=== PATIENT | female | born 1940 | race African-American/Black ===

== ENCOUNTER 2019-01-21 08:54 | Inpatient (IN) | payer MEDICARE, MEDICAID ==
[~2019-01-21] VITALS: Ht 177.8 cm; Wt 141.6 kg
[~2019-01-21 08:54] MED LIST: ALBU6.7H IH; AMLO10TA80 PO; ATROV IH; LORA-250 PO; LOSA1TAB34 PO; NEBI10TA2 PO; PROP10DR5 OP; RIVA20TA PO
[2019-01-21] MEDS ORDERED: IPRATROPIUM BROMIDE (0.02%) 0.5MG/2.5ML NEB HHN STA (09:00)
[2019-01-21] MEDS ORDERED: ALBUTEROL (0.083%) 2.5MG/3ML NEB HHN SCH (09:00)
[2019-01-21] MEDS ORDERED: ALBUTEROL (0.083%) 2.5MG/3ML NEB ONE ×2 (09:12→09:13)
[2019-01-21] MEDS ORDERED: IPRATROPIUM BROMIDE (0.02%) 0.5MG/2.5ML NEB ONE (09:13)
[2019-01-21 09:25] LABS: HEMATOCRIT. 36.6 % (36.0-48.0); HEMOGLOBIN. 11.9 g/dL (12.0-16.0); MEAN CORPUSCULAR HEMOGLOBIN 29.2 pg (28.0-32.0); MEAN CORPUSCULAR VOLUME 89.7 fL (81.0-99.0); MEAN PLATELET VOLUME 10.1 fl (7.4-10.4); PLATELET 147 x1000/uL (130-400); RED BLOOD CELL COUNT 4.08 mill/uL (4.2-5.4); RED CELL DISTRIBUTION WIDTH 16.2 % (11.6-14.6)
[2019-01-21 09:35] LABS: CHLORIDE 102 mEq/L (98-107)
[2019-01-21 09:49] LABS: BG BASE EXCESS 0.3 mmol/L (-2.0-2.0); BG BILEVEL POS AIRWAY PRESSURE 15/5; BG CARBOXYHEMOGLOBIN 0.8 % (0.5-1.5); BG DEOXYHEMOGLOBIN 0.4 % (0.0-5.0); BG FRACTION INSPIRED OXYGEN 100; BG HCO3 ACT 26.2 mmol/L (22.0-26.0); BG METHEMOGLOBIN 0.4 % (0.0-1.5); BG OXYGEN SATURATION 99.6 % (92.0-98.5); BG OXYHEMOGLOBIN 98.4 % (94.0-97.0); BG PCO2 47.5 mmHg (35.0-45.0); BG PO2 410.8 mmHg (75.0-100.0); BG SAMPLE SITE RIGHT RADIAL; BG TOTAL HEMOGLOBIN 12.5 g/dL (12.0-18.0); BG VENT MODE MASK - BIPAP; BG VENT RATE 26 set
[2019-01-21 10:58] LABS: PLATELET ESTIMATE NORMAL
[2019-01-21] MEDS ORDERED: ENALAPRIL 2.5MG/2ML VIAL 2ML IV ONE (11:15)
[2019-01-21] MEDS ORDERED: FUROSEMIDE 40MG/4ML VIAL IVP ONE (11:15)
[2019-01-21] MEDS ORDERED: CLONIDINE 0.1MG TABLET PO PRN (12:45)
[2019-01-21] MEDS ORDERED: IPRATROPIUM/ALBUTEROL 0.5-3(2.5)MG/3ML NEB HHN PRN ×2 (12:45→14:15)
[2019-01-21] MEDS ORDERED: ACETAMINOPHEN 325MG TABLET PO PRN (12:45)
[2019-01-21] MEDS ORDERED: ONDANSETRON HCL 4MG/2ML INJ IV PRN (12:45)
[2019-01-21] MEDS ORDERED: GUAIFENESIN-DM 200MG-20MG/10ML UDC PO PRN (13:45)
[2019-01-21 13:57] VITALS: BP 164/99
[2019-01-21 14:00] VITALS: BP 164/99
[2019-01-21] MEDS ORDERED: PRED5TAB MT (14:40)
[2019-01-21] MEDS ORDERED: FURO40TA5 MT (14:41)
[2019-01-21] MEDS ORDERED: CARV6.2548 MT (14:42)
[2019-01-21] MEDS ORDERED: OXYB5TAB MT (14:44)
[2019-01-21] MEDS: LOSARTAN POTASSIUM 50 MG TABLET PO SCH (15:11)
[2019-01-21] MEDS: METHYLPREDNISOLONE SOD SUCC 40 MG/ML VIAL IV SCH ×2 (15:12→21:56)
[2019-01-21 16:00] VITALS: BP 155/76
[2019-01-21] MEDS ORDERED: ENOXAPARIN 40MG/0.4ML SYR SUBCUT SCH (16:00)
[2019-01-21] MEDS: IPRATROPIUM/ALBUTEROL 0.5-3(2.5)MG/3ML NEB HHN SCH ×3 (16:33→23:54)
[2019-01-21] MEDS: ACETYLCYSTEINE 100MG/ML 10% VIAL 4ML INH SCH ×2 (16:33→23:54)
[2019-01-21] MEDS: FUROSEMIDE 40MG/4ML VIAL IVP SCH (17:53)
[2019-01-21 18:00] VITALS: BP 147/70
[2019-01-21 20:00] VITALS: BP 141/88
[2019-01-21] MEDS: BUDESONIDE 0.5MG/2ML NEB HHN SCH (20:42)
[2019-01-21] MEDS ORDERED: CARVEDILOL 6.25 MG TABLET PO SCH (21:00)
[2019-01-21] MEDS: GUAIFENESIN 600MG ER TABLET PO SCH (21:56)
[2019-01-21 22:00] VITALS: BP 140/87
[2019-01-22] VITALS (12 sets, daily range): BP systolic 105–176; BP diastolic 49–93
[2019-01-22] MEDS: IPRATROPIUM/ALBUTEROL 0.5-3(2.5)MG/3ML NEB HHN SCH ×5 (03:22→20:44)
[2019-01-22] MEDS: METHYLPREDNISOLONE SOD SUCC 40 MG/ML VIAL IV SCH ×3 (05:34→17:58)
[2019-01-22] MEDS: ACETYLCYSTEINE 100MG/ML 10% VIAL 4ML INH SCH ×2 (09:25→16:53)
[2019-01-22] MEDS: BUDESONIDE 0.5MG/2ML NEB HHN SCH ×2 (09:25→20:44)
[2019-01-22 09:28] LABS: CLARITY URINE CLOUDY (CLEAR); COLOR URINE YELLOW (YELLOW); KETONES URINE NEGATIVE (NEGATIVE); LEUKOCYTE ESTERASE URINE 1+ (NEGATIVE); NITRITE URINE NEGATIVE (NEGATIVE); OCCULT BLOOD URINE 3+ (NEGATIVE); PROTEIN URINE NEGATIVE (NEGATIVE); SPECIFIC GRAVITY URINE 1.019 (1.005-1.030); UROBILINOGEN URINE 0.2 E.U./dL (0.2-1.0)
[2019-01-22] MEDS: LOSARTAN POTASSIUM 50 MG TABLET PO SCH (10:03)
[2019-01-22] MEDS: FUROSEMIDE 40MG/4ML VIAL IVP SCH (10:03)
[2019-01-22] MEDS: GUAIFENESIN 600MG ER TABLET PO SCH ×2 (10:03→21:36)
[2019-01-22 10:16] LABS: *AMPHETAMINES SCREEN URINE NEGATIVE (NEGATIVE); *BARBITURATES SCREEN URINE NEGATIVE (NEGATIVE); *BENZODIAZEPINES SCREEN URINE NEGATIVE (NEGATIVE); *COCAINE SCREEN URINE NEGATIVE (NEGATIVE); METHADONE URINE SCREEN NEGATIVE (NEGATIVE); OPIATES URINE SCREEN NEGATIVE (NEGATIVE); PHENCYCLIDINE URINE SCREEN NEGATIVE (NEGATIVE)
[2019-01-22 10:17] LABS: CANNABINOID URINE SCREEN NEGATIVE (NEGATIVE)
[2019-01-22 12:31] LABS: BASOPHILS % 0.1 % (0.0-2.0); HEMATOCRIT. 39.7 % (36.0-48.0); HEMOGLOBIN. 12.8 g/dL (12.0-16.0); LYMPHOCYTES % 14.6 % (20.0-50.0); MEAN CORPUSCULAR HEMOGLOBIN 28.7 pg (28.0-32.0); MEAN CORPUSCULAR VOLUME 89.3 fL (81.0-99.0); MEAN PLATELET VOLUME 10.2 fl (7.4-10.4); MONOCYTES % 5.3 % (2.0-8.0); PLATELET 142 x1000/uL (130-400); RED BLOOD CELL COUNT 4.44 mill/uL (4.2-5.4); RED CELL DISTRIBUTION WIDTH 16.3 % (11.6-14.6)
[2019-01-22 12:38] LABS: CHLORIDE 101 mEq/L (98-107)
[2019-01-22] MEDS: METRONIDAZOLE 500MG TABLET PO SCH ×2 (15:32→21:36)
[2019-01-22] MEDS ORDERED: TERBUTALINE SULFATE 1MG/ML VIAL SUBCUT NR (16:00)
[2019-01-22] MEDS: RIVAROXABAN 20 MG TABLET PO SCH (17:57)
[2019-01-23] VITALS (13 sets, daily range): BP systolic 121–171; BP diastolic 66–87
[2019-01-23] MEDS: ACETYLCYSTEINE 100MG/ML 10% VIAL 4ML INH SCH ×2 (00:36→08:13)
[2019-01-23] MEDS: IPRATROPIUM/ALBUTEROL 0.5-3(2.5)MG/3ML NEB HHN SCH ×6 (00:36→19:57)
[2019-01-23] MEDS: METRONIDAZOLE 500MG TABLET PO SCH ×2 (05:38→14:55)
[2019-01-23 07:31] LABS: BASOPHILS % 0.1 % (0.0-2.0); HEMATOCRIT. 36.8 % (36.0-48.0); HEMOGLOBIN. 12.2 g/dL (12.0-16.0); LYMPHOCYTES % 9.8 % (20.0-50.0); MEAN CORPUSCULAR VOLUME 87.5 fL (81.0-99.0); MEAN PLATELET VOLUME 10.4 fl (7.4-10.4); NEUTROPHILS % 83.1 % (40.0-76.0); PLATELET 154 x1000/uL (130-400); RED CELL DISTRIBUTION WIDTH 15.8 % (11.6-14.6)
[2019-01-23 07:41] LABS: CHLORIDE 101 mEq/L (98-107)
[2019-01-23] MEDS: BUDESONIDE 0.5MG/2ML NEB HHN SCH ×2 (08:00→19:57)
[2019-01-23] MEDS: LOSARTAN POTASSIUM 50 MG TABLET PO SCH (10:44)
[2019-01-23] MEDS: METHYLPREDNISOLONE SOD SUCC 40 MG/ML VIAL IV SCH (10:44)
[2019-01-23] MEDS: GUAIFENESIN 600MG ER TABLET PO SCH ×2 (10:44→21:06)
[2019-01-23] MEDS ORDERED: LEVOFLOXACIN 500MG PREMIX 100 ML IV SCH (12:00)
[2019-01-23] MEDS: RIVAROXABAN 20 MG TABLET PO SCH (17:27)
[2019-01-24] MEDS ORDERED: PREDNISONE 20MG TABLET PO SCH (09:00)
== END 2019-01-23 21:31 | disposition home or self-care (01) | DRG 189 ==
LOC: ER 08:54 → 5EST 11:52 → EDBEDREQ 11:59 → ENRESERV 12:26
PROVIDERS: ADMIT Internal Medicine; ATTEND Internal Medicine
PROC: 5A09357 Assistance with Respiratory Ventilation, Less than 24 Consecutive Hours, Continuous Positive Airway Pressure (ICD-10-PCS; principal; 2019-01-21)
DX: J96.01 Acute respiratory failure with hypoxia (principal); I50.33 Acute on chronic diastolic (congestive) heart failure; G93.41 Metabolic encephalopathy; J44.1 Chronic obstructive pulmonary disease with (acute) exacerbation; E44.1 Mild protein-calorie malnutrition; D64.9 Anemia, unspecified; I11.0 Hypertensive heart disease with heart failure; E66.9 Obesity, unspecified; A59.9 Trichomoniasis, unspecified; I48.2 Chronic atrial fibrillation; Z79.01 Long term (current) use of anticoagulants; Z82.49 Family history of ischemic heart disease and other diseases of the circulatory system; Z88.0 Allergy status to penicillin; Z88.2 Allergy status to sulfonamides; Z79.899 Other long term (current) drug therapy
CPT/HCPCS: 36415; 36600; 71045; 80048; 80061; 80305; 82375; 82805; 83036; 83880; 84443; 84484; 87077; 87186; 87804; 93005; 93306; 93970; 94640; 94660; 96374; 99291; J1650; J1940; J1956; J2920; J3490; J7050; J7608; J7611; J7620; J7626

== ENCOUNTER 2021-08-23 13:16 | Inpatient (IN) | payer MEDICARE, MEDICAID ==
[~2021-08-23] VITALS: Ht 177.8 cm; Wt 132.0 kg
[~2021-08-23 13:16] MED LIST changes: -ALBU6.7H IH; +ALBU6.7H15 IH; +FURO40TA5 MT; +OXYB5TAB MT
[2021-08-23 14:38] LABS: BASOPHILS % 0.2 % (0.0-2.0); EOSINOPHILS % 1.2 % (0.0-5.0); HEMOGLOBIN. 10.7 g/dL (12.0-16.0); LYMPHOCYTES % 8.9 % (20.0-50.0); MEAN CORPUSCULAR HEMOGLOBIN 27.4 pg (28.0-32.0); MEAN CORPUSCULAR VOLUME 86.7 fL (81.0-99.0); MEAN PLATELET VOLUME 10.2 fl (7.4-10.4); MONOCYTES % 6.3 % (2.0-8.0); NEUTROPHILS % 83.4 % (40.0-76.0); PLATELET 274 x1000/uL (130-400); RED BLOOD CELL COUNT 3.92 mill/uL (4.2-5.4); RED CELL DISTRIBUTION WIDTH 15.3 % (11.6-14.6)
[2021-08-23 14:44] LABS: CHLORIDE 100 mEq/L (98-107)
[2021-08-23 14:54] LABS: CREATINE KINASE 179 IU/L (26-192)
[2021-08-23] MEDS ORDERED: ONDANSETRON HCL 4MG/2ML INJ IV STA (15:47)
[2021-08-23] MEDS ORDERED: MORPHINE SULFATE 4 MG/ML CPJ (NOT FOR IM USE) IV STA (15:47)
[2021-08-23] MEDS ORDERED: ONDANSETRON HCL 4MG/2ML INJ IV PRN (23:00)
[2021-08-24] VITALS (7 sets, daily range): BP systolic 115–158; BP diastolic 48–86
[2021-08-24 08:35] LABS: BASOPHILS % 0.4 % (0.0-2.0); EOSINOPHILS % 2.6 % (0.0-5.0); HEMATOCRIT. 31.7 % (36.0-48.0); HEMOGLOBIN. 10.2 g/dL (12.0-16.0); LYMPHOCYTES % 9.8 % (20.0-50.0); MEAN CORPUSCULAR HEMOGLOBIN 28.1 pg (28.0-32.0); MEAN CORPUSCULAR VOLUME 87.6 fL (81.0-99.0); MEAN PLATELET VOLUME 10.8 fl (7.4-10.4); MONOCYTES % 7.3 % (2.0-8.0); NEUTROPHILS % 79.9 % (40.0-76.0); PLATELET 273 x1000/uL (130-400); RED BLOOD CELL COUNT 3.62 mill/uL (4.2-5.4); RED CELL DISTRIBUTION WIDTH 15.6 % (11.6-14.6)
[2021-08-24 08:51] LABS: CHLORIDE 102 mEq/L (98-107)
[2021-08-24 09:07] LABS: LDL CHOLESTEROL 91 mg/dL (5-100)
[2021-08-24 09:08] LABS: CREATINE KINASE 267 IU/L (26-192)
[2021-08-24 09:09] LABS: HDL CHOLESTEROL 37 mg/dL (40-59)
[2021-08-24 09:12] LABS: CREATINE KINASE MB FRACTION 3.4 ng/mL (0.5-3.6)
[2021-08-24] MEDS ORDERED: SODIUM HYPOCHLORITE 0.125% 473ML SOLUTION TOP PRN (12:00)
[2021-08-24] MEDS: ENOXAPARIN 30MG/0.3ML SYR SUBCUT SCH ×2 (12:02→22:34)
[2021-08-24 17:36] LABS: CREATINE KINASE 294 IU/L (26-192)
[2021-08-24 17:37] LABS: CREATINE KINASE MB FRACTION 2.7 ng/mL (0.5-3.6)
[2021-08-25] VITALS: BP 128/65
[2021-08-25 03:49] VITALS: BP 134/59
[2021-08-25 08:00] VITALS: BP 106/48
[2021-08-25] MEDS: ENOXAPARIN 30MG/0.3ML SYR SUBCUT SCH ×3 (09:00→21:02)
[2021-08-25 12:00] VITALS: BP 117/56
[2021-08-25 14:25] LABS: BASOPHILS % 0.5 % (0.0-2.0); EOSINOPHILS % 3.6 % (0.0-5.0); HEMATOCRIT. 32.1 % (36.0-48.0); HEMOGLOBIN. 10.1 g/dL (12.0-16.0); LYMPHOCYTES % 15.3 % (20.0-50.0); MEAN CORPUSCULAR HEMOGLOBIN 27.6 pg (28.0-32.0); MEAN CORPUSCULAR VOLUME 87.3 fL (81.0-99.0); MEAN PLATELET VOLUME 10.9 fl (7.4-10.4); MONOCYTES % 8.6 % (2.0-8.0); PLATELET 279 x1000/uL (130-400); RED BLOOD CELL COUNT 3.67 mill/uL (4.2-5.4); RED CELL DISTRIBUTION WIDTH 15.4 % (11.6-14.6)
[2021-08-25 14:29] LABS: CHLORIDE 106 mEq/L (98-107)
[2021-08-25 16:00] VITALS: BP 136/52
[2021-08-25] MEDS: ZINC SULFATE 220 MG ( 50 ) CAPSULE PO SCH (18:20)
[2021-08-25] MEDS: ASCORBIC ACID 250 MG TABLET PO SCH (18:20)
[2021-08-25 20:00] VITALS: BP 113/46
[2021-08-26] VITALS: BP 111/41
[2021-08-26 04:00] VITALS: BP 138/44
[2021-08-26 08:00] VITALS: BP 135/72
[2021-08-26] MEDS: ENOXAPARIN 30MG/0.3ML SYR SUBCUT SCH ×2 (09:38→20:53)
[2021-08-26] MEDS: ZINC SULFATE 220 MG ( 50 ) CAPSULE PO SCH (09:38)
[2021-08-26] MEDS: ASCORBIC ACID 250 MG TABLET PO SCH (09:38)
[2021-08-26 12:00] VITALS: BP 131/42
[2021-08-26 16:00] VITALS: BP 138/56
[2021-08-26 20:00] VITALS: BP 135/60
[2021-08-26] MEDS: ACETAMINOPHEN 325MG TABLET PO PRN (21:44)
[2021-08-26] MEDS ORDERED: NALOXONE HCL 0.4MG/ML VIAL IV PRN (21:45)
[2021-08-26] MEDS ORDERED: HYDROCODONE/ACETAMINOPHEN 5/325MG TABLET PO PRN (21:45)
[2021-08-27] VITALS: BP 129/65
[2021-08-27 04:00] VITALS: BP 120/50
[2021-08-27 08:00] VITALS: BP 146/62
[2021-08-27] MEDS: ASCORBIC ACID 250 MG TABLET PO SCH (10:06)
[2021-08-27] MEDS: ZINC SULFATE 220 MG ( 50 ) CAPSULE PO SCH (10:07)
[2021-08-27] MEDS: ENOXAPARIN 30MG/0.3ML SYR SUBCUT SCH (10:07)
[2021-08-27 12:00] VITALS: BP 116/55
[2021-08-27 16:00] VITALS: BP 132/80
[2021-08-27] MEDS ORDERED: ZINC220C2 PO (18:01)
[2021-08-27] MEDS ORDERED: ASCO250T22 PO (18:01)
[2021-08-27] MEDS ORDERED: OXYBUTYNIN CHLORIDE MT SCH (18:15)
[2021-08-27] MEDS: OXYBUTYNIN CHLORIDE 5MG TABLET PO SCH (18:35)
[2021-08-27] MEDS: RIVAROXABAN 20 MG TABLET PO SCH (18:35)
[2021-08-27] MEDS: FUROSEMIDE 40MG TABLET PO SCH (18:35)
[2021-08-27] MEDS: NEBIVOLOL HCL 5 MG TABLET PO SCH (18:35)
[2021-08-27 20:00] VITALS: BP 132/42
[2021-08-27] MEDS: ALBUTEROL (0.083%) 2.5MG/3ML NEB HHN SCH (20:17)
[2021-08-27 21:07] LABS: BASOPHILS % 0.4 % (0.0-2.0); EOSINOPHILS % 3.9 % (0.0-5.0); HEMATOCRIT. 33.1 % (36.0-48.0); HEMOGLOBIN. 10.6 g/dL (12.0-16.0); LYMPHOCYTES % 19.6 % (20.0-50.0); MEAN CORPUSCULAR VOLUME 87.3 fL (81.0-99.0); MEAN PLATELET VOLUME 10.4 fl (7.4-10.4); MONOCYTES % 8.3 % (2.0-8.0); NEUTROPHILS % 67.8 % (40.0-76.0); PLATELET 301 x1000/uL (130-400); RED CELL DISTRIBUTION WIDTH 15.5 % (11.6-14.6)
[2021-08-27 21:15] LABS: CHLORIDE 105 mEq/L (98-107)
[2021-08-27 21:17] LABS: INR 1.2; PROTHROMBIN TIME 13.1 sec (9.6-11.0)
[2021-08-28] VITALS: BP 140/59
[2021-08-28 04:00] VITALS: BP 149/66
[2021-08-28 08:00] VITALS: BP 148/69
[2021-08-28] MEDS: ALBUTEROL (0.083%) 2.5MG/3ML NEB HHN SCH ×2 (08:12→22:35)
[2021-08-28] MEDS ORDERED: ALBUTEROL 6.7GM HFA INHALER INH SCH (09:00)
[2021-08-28] MEDS: ASCORBIC ACID 250 MG TABLET PO SCH (09:22)
[2021-08-28] MEDS: OXYBUTYNIN CHLORIDE 5MG TABLET PO SCH ×3 (09:22→18:23)
[2021-08-28] MEDS: AMLODIPINE 10MG TABLET PO SCH (09:23)
[2021-08-28] MEDS: ZINC SULFATE 220 MG ( 50 ) CAPSULE PO SCH (09:23)
[2021-08-28] MEDS: NEBIVOLOL HCL 5 MG TABLET PO SCH (09:23)
[2021-08-28] MEDS: FUROSEMIDE 40MG TABLET PO SCH (09:23)
[2021-08-28 12:00] VITALS: BP 105/59
[2021-08-28] MEDS: ACETAMINOPHEN 325MG TABLET PO PRN (15:22)
[2021-08-28 16:00] VITALS: BP 125/55
[2021-08-28] MEDS: RIVAROXABAN 20 MG TABLET PO SCH (18:23)
[2021-08-28 20:00] VITALS: BP 93/42
[2021-08-29] VITALS (7 sets, daily range): BP systolic 88–138; BP diastolic 41–58
[2021-08-29] MEDS: FUROSEMIDE 40MG TABLET PO SCH (09:00)
[2021-08-29] MEDS: AMLODIPINE 10MG TABLET PO SCH (09:00)
[2021-08-29] MEDS: NEBIVOLOL HCL 5 MG TABLET PO SCH (09:00)
[2021-08-29] MEDS: ALBUTEROL (0.083%) 2.5MG/3ML NEB HHN SCH ×2 (09:20→21:02)
[2021-08-29] MEDS: OXYBUTYNIN CHLORIDE 5MG TABLET PO SCH ×3 (09:36→17:30)
[2021-08-29] MEDS: ZINC SULFATE 220 MG ( 50 ) CAPSULE PO SCH (09:36)
[2021-08-29] MEDS: ASCORBIC ACID 250 MG TABLET PO SCH (09:36)
[2021-08-29] MEDS: ACETAMINOPHEN 325MG TABLET PO PRN (09:37)
[2021-08-29] MEDS ORDERED: LIDOCAINE HCL 2% JELLY 5ML TOP NR (16:00)
[2021-08-29] MEDS: RIVAROXABAN 20 MG TABLET PO SCH (17:30)
[2021-08-30] VITALS (7 sets, daily range): BP systolic 106–142; BP diastolic 35–70
[2021-08-30] MEDS: ACETAMINOPHEN 325MG TABLET PO PRN ×3 (05:20→21:00)
[2021-08-30] MEDS: ASCORBIC ACID 250 MG TABLET PO SCH (09:02)
[2021-08-30] MEDS: NEBIVOLOL HCL 5 MG TABLET PO SCH (09:03)
[2021-08-30] MEDS: ZINC SULFATE 220 MG ( 50 ) CAPSULE PO SCH (09:03)
[2021-08-30] MEDS: FUROSEMIDE 40MG TABLET PO SCH (09:03)
[2021-08-30] MEDS: OXYBUTYNIN CHLORIDE 5MG TABLET PO SCH ×3 (09:04→17:19)
[2021-08-30] MEDS: AMLODIPINE 10MG TABLET PO SCH (09:04)
[2021-08-30] MEDS: ALBUTEROL (0.083%) 2.5MG/3ML NEB HHN SCH ×2 (10:13→20:08)
[2021-08-30] MEDS: RIVAROXABAN 20 MG TABLET PO SCH (17:19)
[2021-08-31] VITALS: BP 116/81
[2021-08-31 08:00] VITALS: BP 116/45
[2021-08-31] MEDS: NEBIVOLOL HCL 5 MG TABLET PO SCH ×2 (09:00→13:42)
[2021-08-31] MEDS: FUROSEMIDE 40MG TABLET PO SCH ×2 (09:00→13:42)
[2021-08-31] MEDS: AMLODIPINE 10MG TABLET PO SCH ×2 (09:00→13:42)
[2021-08-31] MEDS: OXYBUTYNIN CHLORIDE 5MG TABLET PO SCH ×3 (09:20→17:29)
[2021-08-31] MEDS: ACETAMINOPHEN 325MG TABLET PO PRN (09:21)
[2021-08-31] MEDS: ZINC SULFATE 220 MG ( 50 ) CAPSULE PO SCH (09:22)
[2021-08-31] MEDS: ASCORBIC ACID 250 MG TABLET PO SCH (09:22)
[2021-08-31] MEDS: ALBUTEROL (0.083%) 2.5MG/3ML NEB HHN SCH ×2 (09:34→20:37)
[2021-08-31] MEDS ORDERED: BISACODYL 10MG SUPP PR PRN (10:15)
[2021-08-31] MEDS: DOCUSATE SODIUM 100MG CAPSULE PO SCH ×2 (10:15→17:30)
[2021-08-31] MEDS ORDERED: LACTULOSE 20G/30ML UDC PO SCH (10:15)
[2021-08-31 12:00] VITALS: BP 131/53
[2021-08-31 16:00] VITALS: BP 116/49
[2021-08-31] MEDS: RIVAROXABAN 20 MG TABLET PO SCH (17:29)
[2021-08-31 20:00] VITALS: BP 123/53
[2021-09-01] VITALS: BP 118/48
[2021-09-01] MEDS: ACETAMINOPHEN 325MG TABLET PO PRN (00:59)
[2021-09-01 04:00] VITALS: BP 126/47
[2021-09-01 08:04] VITALS: BP 107/78
[2021-09-01] MEDS: OXYBUTYNIN CHLORIDE 5MG TABLET PO SCH ×3 (08:41→17:13)
[2021-09-01] MEDS: AMLODIPINE 10MG TABLET PO SCH (08:41)
[2021-09-01] MEDS: FUROSEMIDE 40MG TABLET PO SCH (08:42)
[2021-09-01] MEDS: NEBIVOLOL HCL 5 MG TABLET PO SCH (08:42)
[2021-09-01] MEDS: DOCUSATE SODIUM 100MG CAPSULE PO SCH ×2 (08:42→17:13)
[2021-09-01] MEDS: ASCORBIC ACID 250 MG TABLET PO SCH (08:42)
[2021-09-01] MEDS: ZINC SULFATE 220 MG ( 50 ) CAPSULE PO SCH (08:48)
[2021-09-01] MEDS: ALBUTEROL (0.083%) 2.5MG/3ML NEB HHN SCH ×2 (09:59→20:58)
[2021-09-01 12:39] VITALS: BP 122/50
[2021-09-01 15:59] VITALS: BP 101/50
[2021-09-01] MEDS: RIVAROXABAN 20 MG TABLET PO SCH (16:20)
[2021-09-01 20:00] VITALS: BP 116/54
[2021-09-02] VITALS: BP 121/63
[2021-09-02 04:00] VITALS: BP 137/71
[2021-09-02] MEDS: ACETAMINOPHEN 325MG TABLET PO PRN (04:56)
[2021-09-02 08:09] VITALS: BP 118/50
[2021-09-02] MEDS: FUROSEMIDE 40MG TABLET PO SCH (08:27)
[2021-09-02] MEDS: ASCORBIC ACID 250 MG TABLET PO SCH (08:27)
[2021-09-02] MEDS: DOCUSATE SODIUM 100MG CAPSULE PO SCH ×2 (08:27→17:16)
[2021-09-02] MEDS: NEBIVOLOL HCL 5 MG TABLET PO SCH (08:28)
[2021-09-02] MEDS: OXYBUTYNIN CHLORIDE 5MG TABLET PO SCH ×3 (08:28→17:16)
[2021-09-02] MEDS: ZINC SULFATE 220 MG ( 50 ) CAPSULE PO SCH (08:28)
[2021-09-02] MEDS: AMLODIPINE 10MG TABLET PO SCH (08:28)
[2021-09-02] MEDS: ALBUTEROL (0.083%) 2.5MG/3ML NEB HHN SCH ×2 (09:29→21:52)
[2021-09-02 12:57] VITALS: BP 124/51
[2021-09-02 16:23] VITALS: BP 113/50
[2021-09-02] MEDS: RIVAROXABAN 20 MG TABLET PO SCH (17:16)
[2021-09-02 20:00] VITALS: BP 114/51
[2021-09-03] VITALS: BP 118/62
[2021-09-03 04:00] VITALS: BP 136/58
[2021-09-03] MEDS: ACETAMINOPHEN 325MG TABLET PO PRN (05:09)
[2021-09-03 08:00] VITALS: BP 115/57
[2021-09-03] MEDS: ALBUTEROL (0.083%) 2.5MG/3ML NEB HHN SCH ×2 (08:49→20:26)
[2021-09-03] MEDS: NEBIVOLOL HCL 5 MG TABLET PO SCH (09:07)
[2021-09-03] MEDS: DOCUSATE SODIUM 100MG CAPSULE PO SCH ×2 (09:08→16:14)
[2021-09-03] MEDS: FUROSEMIDE 40MG TABLET PO SCH (09:08)
[2021-09-03] MEDS: OXYBUTYNIN CHLORIDE 5MG TABLET PO SCH ×3 (09:08→16:14)
[2021-09-03] MEDS: AMLODIPINE 10MG TABLET PO SCH (09:08)
[2021-09-03] MEDS: ZINC SULFATE 220 MG ( 50 ) CAPSULE PO SCH (09:08)
[2021-09-03] MEDS: ASCORBIC ACID 250 MG TABLET PO SCH (09:11)
[2021-09-03 12:00] VITALS: BP 125/75
[2021-09-03 16:00] VITALS: BP 104/58
[2021-09-03] MEDS: RIVAROXABAN 20 MG TABLET PO SCH (16:14)
[2021-09-03 20:00] VITALS: BP 118/36
[2021-09-04] VITALS: BP 120/46
[2021-09-04] MEDS: ACETAMINOPHEN 325MG TABLET PO PRN ×2 (00:48→17:06)
[2021-09-04 04:00] VITALS: BP 118/45
[2021-09-04 06:53] LABS: BASOPHILS % 0.3 % (0.0-2.0); EOSINOPHILS % 2.9 % (0.0-5.0); HEMATOCRIT. 30.4 % (36.0-48.0); LYMPHOCYTES % 12.8 % (20.0-50.0); MEAN CORPUSCULAR HEMOGLOBIN 28.5 pg (28.0-32.0); MEAN CORPUSCULAR VOLUME 86.1 fL (81.0-99.0); MEAN PLATELET VOLUME 10.2 fl (7.4-10.4); MONOCYTES % 7.1 % (2.0-8.0); NEUTROPHILS % 76.9 % (40.0-76.0); PLATELET 337 x1000/uL (130-400); RED BLOOD CELL COUNT 3.53 mill/uL (4.2-5.4)
[2021-09-04 06:58] LABS: CHLORIDE 102 mEq/L (98-107)
[2021-09-04 08:00] VITALS: BP 133/49
[2021-09-04] MEDS: ALBUTEROL (0.083%) 2.5MG/3ML NEB HHN SCH ×2 (08:03→20:09)
[2021-09-04] MEDS: AMLODIPINE 10MG TABLET PO SCH (08:49)
[2021-09-04] MEDS: NEBIVOLOL HCL 5 MG TABLET PO SCH (08:49)
[2021-09-04] MEDS: DOCUSATE SODIUM 100MG CAPSULE PO SCH ×2 (08:49→17:06)
[2021-09-04] MEDS: FUROSEMIDE 40MG TABLET PO SCH (08:49)
[2021-09-04] MEDS: ASCORBIC ACID 250 MG TABLET PO SCH (08:49)
[2021-09-04] MEDS: OXYBUTYNIN CHLORIDE 5MG TABLET PO SCH ×3 (08:49→17:07)
[2021-09-04] MEDS: ZINC SULFATE 220 MG ( 50 ) CAPSULE PO SCH (08:49)
[2021-09-04 12:00] VITALS: BP 113/38
[2021-09-04 16:00] VITALS: BP 126/59
[2021-09-04] MEDS: RIVAROXABAN 20 MG TABLET PO SCH (17:06)
[2021-09-04 20:00] VITALS: BP 104/62
[2021-09-05] VITALS: BP 128/56
[2021-09-05 04:00] VITALS: BP 115/62
[2021-09-05 08:00] VITALS: BP 116/73
[2021-09-05] MEDS: ALBUTEROL (0.083%) 2.5MG/3ML NEB HHN SCH (09:05)
[2021-09-05] MEDS: OXYBUTYNIN CHLORIDE 5MG TABLET PO SCH ×2 (11:12→13:00)
[2021-09-05] MEDS: ZINC SULFATE 220 MG ( 50 ) CAPSULE PO SCH (11:13)
[2021-09-05] MEDS: AMLODIPINE 10MG TABLET PO SCH (11:13)
[2021-09-05] MEDS: NEBIVOLOL HCL 5 MG TABLET PO SCH (11:13)
[2021-09-05] MEDS: DOCUSATE SODIUM 100MG CAPSULE PO SCH (11:13)
[2021-09-05] MEDS: ASCORBIC ACID 250 MG TABLET PO SCH (11:13)
[2021-09-05] MEDS: FUROSEMIDE 40MG TABLET PO SCH (11:13)
[2021-09-05 12:00] VITALS: BP 117/65
[2021-09-05 12:48] VITALS: BP 125/50
[2021-09-05 16:00] VITALS: BP 125/50
== END 2021-09-05 16:20 | disposition home health service (06) | DRG 463 ==
LOC: ER 13:29 → 8WST 18:37 → EDBEDREQ 18:40 → EDBEDREQTM 18:40 → ENRESERV 23:12
PROVIDERS: ADMIT Family Medicine; ATTEND Family Medicine
PROC: 0JB70ZZ Excision of Back Subcutaneous Tissue and Fascia, Open Approach (ICD-10-PCS; principal; 2021-08-30)
DX: M25.552 Pain in left hip (principal); L89.153 Pressure ulcer of sacral region, stage 3; N17.0 Acute kidney failure with tubular necrosis; E43 Unspecified severe protein-calorie malnutrition; L89.223 Pressure ulcer of left hip, stage 3; R55 Syncope and collapse; D64.9 Anemia, unspecified; L89.220 Pressure ulcer of left hip, unstageable; L89.210 Pressure ulcer of right hip, unstageable; I50.9 Heart failure, unspecified; J44.9 Chronic obstructive pulmonary disease, unspecified; M25.551 Pain in right hip; W18.39XA Other fall on same level, initial encounter; I48.91 Unspecified atrial fibrillation; I11.0 Hypertensive heart disease with heart failure; Z74.01 Bed confinement status; Z88.0 Allergy status to penicillin; Z68.35 Body mass index [BMI] 35.0-35.9, adult; Z88.8 Allergy status to other drugs, medicaments and biological substances; Z79.899 Other long term (current) drug therapy; Y93.89 Activity, other specified; Y92.89 Other specified places as the place of occurrence of the external cause; Y99.8 Other external cause status
CPT/HCPCS: 36415; 71045; 72170; 72192; 80048; 80053; 80061; 82040; 82550; 82553; 83880; 84134; 84484; 85025; 92610; 93005; 93306; 94640; 97162; 97166; 97530; 97535; 99285; J1650; J2270; J2405